=== PATIENT | female | born 1990 | race Caucasian/White ===

== ENCOUNTER 2016-11-30 05:33 | Inpatient (IN) ==
[2016-11-30] MEDS ORDERED: Metoclopramide 10 MG/2 ML VIAL IVP ONE (05:52)
[2016-11-30] MEDS ORDERED: Famotidine 20 MG/2 ML VIAL IVP ONE (05:52)
[2016-11-30] MEDS ORDERED: Ringers Solution, Lactated 1,000 ML IVC ONE (05:52)
[2016-11-30 06:05] LABS: Basophils % 0.5 %; Eosinophils # 0.3 K/mcL (0.0-0.6); Eosinophils % 3.4 %; Hemoglobin 10.7 g/dL (11.5-15.4); Immature Granulocytes % 0.5 % (0-4); Lymphocytes # 1.7 K/mcL (0.6-4.6); Lymphocytes % 19.3 %; Mean Corpuscular HGB Conc 31.5 g/dL (31.6-35.5); Mean Corpuscular Hemoglobin 23.4 pg (28.0-33.3); Mean Corpuscular Volume 74.2 fL (83.0-100.0); Mean Platelet Volume 10.1 fL (9.4-12.4); Monocytes # 0.6 K/mcL (0.0-1.3); Monocytes % 6.4 %; Platelet Count 370 K/mcL (140-400); Red Blood Count 4.58 M/mcL (3.82-4.97); Red Cell Distribution Width 15.3 % (11.5-14.5); Segmented Neutrophils % 69.9 %
[2016-11-30] MEDS: Ringers Solution, Lactated 1,000 ML IVC SCH ×2 (06:19→07:29)
--- NOTE | 2016-11-30 06:22 | Anesthesia Evaluation PreOp ---
Date of Encounter: 11/30/16 Time of Encounter: 06:20 - Past History Planned Operation: REPEAT Cardiac History: Denies any Significant Hx Pulmonary History: Denies Any Significant HX ESL INSTRUCTIONAL ASSISTANT History: Denies Any Significant HX Other Medical History: Denies Any Significant HX, Other (MO=BMI 44) Anesthesia History: No Prior Anesthetic Complications, Past Anesthesia (no family Hx, previous under spinal no comp,) : Yes (term) Alcohol Use: none Drug use: marijuana Medications and Allergies Pnv95/Ferrous Fumarate/FA [ Caplet] 1 each PO DAILY 08/03/16 [History] Zantac 50 mg PO DAILY 11/30/16 [History] Allergies No Known Allergies Allergy (Verified 08/03/16 16:29) Anesthesia Results - Labs 11/30/16 05:50 Anesthesia Exam - HEENT Pupil (Motor): Pupils equal Mallampati: II Teeth: Normal Oral Opening: Greater than 3 - ESL INSTRUCTIONAL ASSISTANT LOC: Oriented ESL INSTRUCTIONAL ASSISTANT Motor: Normal RUE, Normal LUE, Normal RLE, Normal LLE, Normal Face ESL INSTRUCTIONAL ASSISTANT Sensory: Normal: RUE, LUE, RLE, LLE, Face - Cardiac Rhythm: Regular Murmur: None - Pulmonary Breath Sounds: bilateral Clear Respiratory Effort: Symmetrical Anesthesia Assess/Plan ASA Score: 3 (MO. BMI=44) Modified Juan J Scale for Level of Consciousness: Cooperative, oriented, and tranquil Anesthetic Plan: General, Regional Monitoring Plan: Standard Monitors
[2016-11-30] MEDS ORDERED: CeFAZolin Pre 3,000 MG/100 ML 3,000 MG/100 ML BAG IVPB ONE (07:27)
[2016-11-30] MEDS ORDERED: MetroNIDAZOLE 500 MG/100 ML 500 MG/100 ML BAG IVPB ONE (07:27)
[2016-11-30] MEDS ORDERED: *HR* Oxytocin 10 UNIT/ML VIAL IM ONE (07:34)
[2016-11-30] MEDS ORDERED: Water for inj. (sterile) 10 ML IV ONE (07:34)
[2016-11-30] MEDS ORDERED: EPHEDrine 50 MG/ML VIAL ONE ×2 (07:35→08:28)
[2016-11-30] MEDS ORDERED: *HR* Morphine Sulfate/PF 5 MG/10 ML AMPUL ONE (07:35)
[2016-11-30] MEDS ORDERED: *HR* FentaNYL (PF) 100 MCG/2 ML VIAL ONE (07:35)
--- NOTE | 2016-11-30 07:44 | OB/GYN History & Physical ---
Date of Encounter: 11/30/16 Time of Encounter: 07:41 Assessment and Plan (1) Term Current visit: Yes Status: Acute Patient has received care (2) Previous section complicating Current visit: Yes Status: Acute Patient plans for repeat section, she has declined a tubal ligation (3) Morbid obesity with BMI of 40.0-44.9, adult Current visit: Yes Status: Chronic Patient has received glucose screening appropriate for BMI during along with monitoring (4) Maternal morbid obesity in third trimester, antepartum Current visit: Yes Status: Acute The patient has received glucose screening (5) Anemia affecting Current visit: Yes Status: Acute Patient has been receiving iron supplementation History of Present Illness Chief complaint: Term , repeat HPI: Ms. Gonzalez is a 26 year old female at 39 weeks who presents for a repeat C- section. Her EDC is 12/07/16 confirmed by ultrasound. She has declined a tubal ligation with her previous visits and informed consent. She reports the fetus is active. She denies any cramping, vaginal bleeding or loss of fluid. Her blood type is O+, GBS negative rubella nonimmune, hepatitis B surface antigen nonreactive. Syphilis screen nonreactive and varicella is immune. HIV is nonreactive. Her is complicated by marijuana use, most recently in October, , she is measuring large for gestational age. She has had over 30 pound weight gain. Her last child was 9 lbs. 7 oz. Past Med Surg Social Fam HX - Past Medical History Source: patient, old records reviewed Medical history: no medical history, other Psychiatric history: no psych history - Past Surgical History Surgical History: - Social History Smoking Status: Never smoker Smokeless Tobacco Status: No Alcohol use: none Drug use: marijuana - Family History Mother Age: 46 Living Status: Still Living Hx Family Cardiac Disorders: Yes (HEART ATTACK) Hx Family Respiratory Disorders: No Hx Family Cancer: No Hx Family GI Disorders: No Hx Family Genitourinary Disorders: No Hx Family Endocrine Disorder: No Hx Family Musculoskeletal Disorders: No Hx Family Neuromuscular Disorders: No Hx Family Neurologic Disorders: No Hx Family HEENT Disorders: No Hx Family Autoimmune Disorders: No Hx Family Reproductive Disorders: No Hx Family Psychosocial Disorders: No Hx Family Medical Disorders: No Obstetrical History - Pregnancies : 2 Term: 1 Livin Medications and Allergies Pnv95/Ferrous Fumarate/FA [ Caplet] 1 each PO DAILY 08/03/16 [History] Zantac 50 mg PO DAILY 11/30/16 [History] Allergies No Known Allergies Allergy (Verified 08/03/16 16:29) Review of System OB All systems PM: reviewed and no additional remarkable complaints except as stated - Constitutional Constitutional ROS IM: fatigue, weight gain - Cardiovascular Cardiovascular: edema, leg edema Exam - Vital Signs Vital signs: Initial Vital Signs Temp Pulse Resp BP 97.2 F L 114 16 119/82 11/30/16 05:44 11/30/16 05:44 11/30/16 05:44 11/30/16 05:44 - Constitutional Constitutional: well developed, well nourished, no acute distress, morbidly obese - HEENT HEENT: Mucus Membranes Moist - Neck Neck exam: normal inspection, supple - Lungs Respiratory exam: CTAB - Cardiovascular Cardiovascular exam: RRR - Abdomen Abdomen: Present: bowel sounds normal, gravid, non tender - Extremities Extremities exam: normal inspection, pedal edema, warm Deep Tendon Reflex Grade: 2+ Normal - Vulva Vulva: bilateral: normal - Vagina Vagina: Present: normal moisture Results Result Diagrams: 11/30/16 05:50 Abnormal lab results Hgb 10.7 g/dL (11.5-15.4) L 11/30/16 05:50 Hct 34.0 % (35.3-44.9) L 11/30/16 05:50 MCV 74.2 fL (83.0-100.0) L 11/30/16 05:50 MCH 23.4 pg (28.0-33.3) L 11/30/16 05:50 MCHC 31.5 g/dL (31.6-35.5) L 11/30/16 05:50 RDW 15.3 % (11.5-14.5) H 11/30/16 05:50 All other labs normal. - VTE Documentation of Mechanical Device: Intermittent pneumatic compression device
[2016-11-30] MEDS ORDERED: Ondansetron 4 MG/2 ML VIAL ONE (09:46)
--- NOTE | 2016-11-30 09:52 | OB/GYN Procedure Note ---
Section - Date of procedure: 11/30/16 Preop diagnosis: desires repeat , breech, other (Morbid obesity) Post-op diagnosis: same (Dense uterine adhesions) Procedure: section, repeat low transverse, other (adhesiolysis) Surgeon: Lela Marion Estimated blood loss (cc): 900 Anesthesiologist: Rajan Greenfield Computer [employer] Information Director: Leti Whitmore Anesthesia Type: Spinal section complications: none Disposition: L&D Recovery Room Specimens: Placenta, Cord segment, Cord blood - (s) Infant A Delivery Date: 11/30/16 Delivery Time: 08:49 Presentation: footling breech Route of delivery: other (Repeat ) Gender: Male Viability: Viable Pounds: 7 Ounces: 5 at 1 minute: 7 at 5 minutes: 9 Shoulder Dystocia: not encountered Specimens collected: cord blood Placenta: spontaneous, uterine exploration Cord: 3 umbilical vessels - Narrative Narrative: The patient was taken to the operating room and given spinal anesthesia adequate for abdominal and pelvic surgery. She was prepped and draped in the usual sterile fashion. Timeout was completed. A Pfannenstiel skin incision was made through the previous scar and sharply dissected down to the fascia. The fascia was incised in the midline and extended bilaterally. 2 straight Figueroa clamps were placed on the inferior fascial edge and the fascia was bluntly and sharply dissected away from the rectus muscles. This was repeated superiorly. The rectus muscles were bluntly dissected. Peritoneum was sharply entered and then extended superiorly and inferiorly confirming there were no anterior adhesions. Bladder blade was placed to protect the bladder. There were dense adhesions of the uterus to the anterior wall which were lysed using Bovie and Metzenbaum scissors. Vesicouterine peritoneum was incised and reflected inferiorly and the bladder blade was replaced to protect the bladder. A low transverse incision was then made through the lower uterine segment down to the amnion. This was extended bilaterally in a U fashion with bandage scissors. The amnion was bluntly entered. A large amount of clear fluid was seen. This was followed by the double footling breech delivery of a viable male infant weighing 7#5 oz with Apgars of 7 at 1 minute and 9 at 5 minutes. was placed on the maternal abdomen and bulb suctioned as there is a large amount of fluid in the 's mouth and nares. The cord was clamped and cut after a minute delay. was handed to the nursery care team. Cord blood and a cord segment were obtained. The placenta was delivered spontaneous and intact. The uterine cavity was digitally palpated and wiped clean with a moist lap sponge. There were no placental remnants identified. A ring forcep was used to make sure the cervix was dilated and then this was discarded off the field. Clamps were placed on the uterine angles and the uterine incision was closed using 0 Vicryl suture in a running, locking fashion. A second imbricating layer completed the uterine closure with 0 Vicryl suture. Hemostasis was achieved using 0 Vicryl in a [id number] fashion at the midline. The uterus was then examined and noted to be hemostatic. The pelvis was then irrigated with a copious amount of sterile water. Again, good hemostasis was identified. Tubes and ovaries were inspected and noted to be grossly normal. The peritoneal edges and rectus muscles were then examined and hemostasis achieved. Interceed was placed over the uterine incision. The fascia was then closed using 0 PDS loop in a running nonlocking fashion. Subcutaneous tissue was irrigated with sterile water, good hemostasis was achieved. Subcutaneous space was then closed using 3-0 Vicryl in a running locking fashion. The skin was then closed using and 4-0 Vicryl in a running subcuticular fashion. The incision was then reinforced with benzoin and Steri-Strips. Good hemostasis was noted. Estimated blood loss was 900cc. The Sánchez was noted to be draining clear yellow urine at the end of the procedure. All sponge and instrument counts are correct at the end of the procedure. The patient was taken to the recovery room in stable condition.
[2016-11-30] MEDS ORDERED: *HR* HYDROmorphone (PF) 1 MG/ML SYRINGE IVP PRN ×2 (10:03→12:41)
[2016-11-30] MEDS ORDERED: *HR* Morphine 2 MG/ML SYRINGE IVP PRN ×2 (10:03→12:41)
[2016-11-30] MEDS ORDERED: *HR* Promethazine 25 MG/ML VIAL IVP PRN (10:03)
[2016-11-30] MEDS ORDERED: Oxytocin 20 units/ LR 1000 mL 20 UNIT/1,000 ML BAG IVC ONE (10:28)
--- NOTE | 2016-11-30 12:00 | Anesthesia Evaluation Post Op ---
Date of Encounter: 11/30/16 Time of Encounter: 11:55 - Vital Signs Vital Signs: vss - Lungs Lungs: Clear Ascult./Percussion - Airway Airway: Non-obstructed - Cardiovascular Regular Rate, Baseline Rhythm - Mental Status Mental Status: Alert & Oriented, Answers Appropriately - Pain Pain Scale: 5 (down from a 7 or 8 ) Pain Scale used: Numeric (1 - 10) - Nausea Vomiting Nausea Vomiting: Not Present - Hydration Hydration: Ice chips, Sánchez catheter - Discharge PostOp Status: Transfer Patient to floor
[2016-11-30] MEDS ORDERED: Acetaminophen IV 1,000 MG/100 ML INFUS..BTL IVPB ONE (12:41)
[2016-11-30] MEDS ORDERED: Measles/Mumps/Rubella Vacc 0.5 ML VIAL SQ ONE (12:41)
[2016-11-30] MEDS ORDERED: Oxytocin 20 units/ LR 1000 mL 20 UNIT/1,000 ML BAG IV SCH (12:41)
[2016-11-30] MEDS ORDERED: Sennosides 8.6 MG TABLET PO PRN (12:41)
[2016-11-30] MEDS ORDERED: Rho Immune Globulin 1,500 UNIT SYRINGE IM ONE (12:41)
[2016-11-30] MEDS ORDERED: Simethicone 80 MG TAB.CHEW PO PRN (12:41)
[2016-11-30] MEDS ORDERED: Ondansetron 4 MG/2 ML VIAL IVP PRN (12:41)
[2016-11-30] MEDS ORDERED: Metoclopramide 10 MG/2 ML VIAL IVP PRN (12:41)
[2016-11-30] MEDS: Ibuprofen 600 MG TABLET PO PRN (18:36)
[2016-11-30] MEDS: *HR* OxyCODONE/APAP 5/325 TABLET PO PRN (21:16)
[2016-11-30] MEDS ORDERED: Ringers Solution, Lactated 1,000 ML ONE (21:38)
[2016-12-01] MEDS: Ibuprofen 600 MG TABLET PO PRN ×3 (03:09→23:31)
[2016-12-01] MEDS ORDERED: Ringers Solution, Lactated 1,000 ML ONE (05:55)
[2016-12-01] MEDS: *HR* OxyCODONE/APAP 5/325 TABLET PO PRN ×3 (07:00→20:17)
[2016-12-01 07:05] LABS: Basophils % 0.1 %; Eosinophils % 0.1 %; Hematocrit 23.2 % (35.3-44.9); Immature Granulocytes % 0.7 % (0-4); Lymphocytes # 1.1 K/mcL (0.6-4.6); Lymphocytes % 8.2 %; Mean Corpuscular HGB Conc 30.6 g/dL (31.6-35.5); Mean Corpuscular Hemoglobin 22.9 pg (28.0-33.3); Mean Corpuscular Volume 74.8 fL (83.0-100.0); Mean Platelet Volume 10.2 fL (9.4-12.4); Monocytes # 0.7 K/mcL (0.0-1.3); Monocytes % 4.8 %; Neutrophils # 11.9 K/mcL (1.6-8.9); Platelet Count 328 K/mcL (140-400); Red Cell Distribution Width 15.6 % (11.5-14.5); Segmented Neutrophils % 86.1 %
[2016-12-01 07:46] LABS: Hemoglobin 7.1 g/dL (11.5-15.4)
--- NOTE | 2016-12-01 09:55 | OB/GYN Progress Note ---
Date of Encounter: 12/01/16 Time of Encounter: 09:53 - Assessment and Plan (1) Status post delivery Current Visit: Yes Status: Acute Continue routine postop/ care possible discharge home tomorrow (2) Anemia, Current Visit: Yes Status: Acute Patient is asymptomatic will repeat cbc Subjective - Subjective Principal diagnosis: day 1 Interval history: Patient postop day 1 repeat c/s. Patient is breast feeding . denies any needs at this time. at bedside. Patient reports: appetite normal, voiding normally, pain well controlled, ambulating normally : doing well, nursing well Objective - Vital Signs Latest vital signs: Vital Signs Temp Pulse Resp BP Pulse Ox 12/01/16 08:05 98.7 F 109 16 110/75 94 L 12/01/16 06:15 98.2 F 118 16 112/75 94 L 12/01/16 03:20 98.3 F 115 18 116/74 96 11/30/16 20:10 98.4 F 120 20 107/65 97 11/30/16 18:29 98.1 F 115 17 109/76 96 11/30/16 16:00 98.5 F 117 20 113/81 95 11/30/16 14:45 97.9 F 117 17 111/79 97 11/30/16 13:45 97.5 F L 117 20 109/78 96 11/30/16 13:20 98.5 F 133 20 112/75 96 11/30/16 12:45 97.8 F 144 20 116/75 95 Intake and Output 11/30/16 12/01/16 12/01/16 23:59 07:59 15:59 Intake Total 890 / 890 150 / 150 Output Total 350 / 350 1200 / 1200 450 / 450 Balance 540 / 540 -1200 / -1200 -300 / -300 Intake: Oral 890 / 890 150 / 150 Output: Urine 850 / 850 450 / 450 Catheter 350 / 350 350 / 350 Other: Meal Dinner Percent of Meal Consumed 25% Stool Characteristics Normal for Patient Weight 121.2 kg Patient Weight 12/01/16 23:59 Weight 121.2 kg - Exam Lungs: bilateral: normal Chest: Normal S1, Normal S2 Extremities: Present: normal Abdomen: Present: normal appearance, soft, gravid Incision: Present: normal, dry, intact, dressed Uterus: Present: normal, firm Fundal Height: 2 (U/2) - Labs Labs: Laboratory Results - last 24 hr 12/01/16 06:07 WBC 13.8 H D RBC 3.10 L Hgb 7.1 L D Hct 23.2 L MCV 74.8 L MCH 22.9 L MCHC 30.6 L RDW 15.6 H Plt Count 328 MPV 10.2 Immature Gran % 0.7 Seg Neutrophils % 86.1 Lymphocytes % 8.2 Monocytes % 4.8 Eosinophils % 0.1 Basophils % 0.1 Neutrophils # 11.9 H Lymphocytes # 1.1 Monocytes # 0.7 Eosinophils # 0.0 Basophils # 0.0
[2016-12-02 04:30] LABS: Basophils % 0.3 %; Eosinophils # 0.2 K/mcL (0.0-0.6); Eosinophils % 1.7 %; Hematocrit 21.1 % (35.3-44.9); Hemoglobin 6.4 g/dL (11.5-15.4); Immature Granulocytes % 0.7 % (0-4); Lymphocytes # 1.9 K/mcL (0.6-4.6); Lymphocytes % 13.3 %; Mean Corpuscular HGB Conc 30.3 g/dL (31.6-35.5); Mean Corpuscular Hemoglobin 22.9 pg (28.0-33.3); Mean Corpuscular Volume 75.4 fL (83.0-100.0); Mean Platelet Volume 9.6 fL (9.4-12.4); Monocytes # 0.7 K/mcL (0.0-1.3); Monocytes % 5.3 %; Platelet Count 337 K/mcL (140-400); Red Cell Distribution Width 15.4 % (11.5-14.5); Segmented Neutrophils % 78.7 %
[2016-12-02] MEDS: Ibuprofen 600 MG TABLET PO PRN ×2 (06:42→15:34)
[2016-12-02] MEDS: Prenatal Vit/FA 1 EACH TABLET PO SCH (08:07)
--- NOTE | 2016-12-02 08:11 | OB/GYN Progress Note ---
Date of Encounter: 12/02/16 Time of Encounter: 08:09 - Assessment and Plan (1) Status post delivery Current Visit: Yes Status: Acute POD #2. Will continue to monitor. Patient is able to shower and ambulate as tolerated after transfusion. (2) Anemia, Current Visit: Yes Status: Acute Hgb dropped from 7.1 yesterday to 6.4 today. Patient is reporting symptoms of lightheadedness and chills. Patient is tachycardiac during exam. Discussed risks and benefits of blood transfusion. Will type and cross 2 units and transfuse blood. Will obtained CBC tomorrow. Subjective - Subjective Principal diagnosis: s/p , POD#2 Interval history: Hgb dropped to 6.4, down from 7.1 yesterday and 10.7 pre-operatively. Patient reports some lightheadedness which occurred when she passed a clot yesterday. Patient also is admitting to chills. Otherwise patient has no complaints. Patient reports: appetite normal, voiding normally, pain well controlled, ambulating normally, other (lightheaded, chills) [place]: doing well, nursing well Objective - Vital Signs Latest vital signs: Vital Signs Temp Pulse Resp BP Pulse Ox 12/01/16 23:10 98.0 F 115 16 123/87 94 L 12/01/16 20:40 98.5 F 113 16 118/79 94 L Intake and Output 12/01/16 12/02/16 12/02/16 23:59 07:59 15:59 Intake Total 240 / 240 100 / 100 Output Total 725 / 725 0 / 0 Balance -485 / -485 100 / 100 Intake: Oral 240 / 240 100 / 100 Output: Urine 725 / 725 0 / 0 - Exam Lungs: bilateral: normal Chest: Normal S1, Normal S2 Extremities: Present: normal. Absent: tenderness Abdomen: Present: normal appearance, soft. Absent: tenderness Incision: Present: normal, dry, intact Uterus: Present: firm Comments: Patient is tachycardiac on exam at 120. - Labs Labs: Laboratory Results - last 24 hr 12/02/16 04:00 WBC 14.0 H RBC 2.80 L Hgb 6.4 L Hct 21.1 L MCV 75.4 L MCH 22.9 L MCHC 30.3 L RDW 15.4 H Plt Count 337 MPV 9.6 Immature Gran % 0.7 Seg Neutrophils % 78.7 Lymphocytes % 13.3 Monocytes % 5.3 Eosinophils % 1.7 Basophils % 0.3 Neutrophils # 11.0 H Lymphocytes # 1.9 Monocytes # 0.7 Eosinophils # 0.2 Basophils # 0.0
[2016-12-02] MEDS ORDERED: 0.9 % Sodium Chloride Mini Bag 100 ML ONE (12:03)
[2016-12-02] MEDS ORDERED: 0.9 % Sodium Chloride 500 ML ONE (12:06)
[2016-12-02] MEDS: *HR* OxyCODONE/APAP 5/325 TABLET PO PRN (21:38)
[2016-12-03] MEDS: *HR* OxyCODONE/APAP 5/325 TABLET PO PRN (03:06)
[2016-12-03] MEDS: Prenatal Vit/FA 1 EACH TABLET PO SCH (08:17)
[2016-12-03 08:22] VITALS: BP 124/86
[2016-12-03 09:12] LABS: Basophils # 0.1 K/mcL (0.0-0.2); Basophils % 0.6 %; Eosinophils # 0.7 K/mcL (0.0-0.6); Eosinophils % 5.8 %; Hematocrit 24.1 % (35.3-44.9); Hemoglobin 7.9 g/dL (11.5-15.4); Immature Granulocytes % 1.3 % (0-4); Lymphocytes # 1.7 K/mcL (0.6-4.6); Lymphocytes % 14.2 %; Mean Corpuscular HGB Conc 32.8 g/dL (31.6-35.5); Mean Corpuscular Hemoglobin 25.3 pg (28.0-33.3); Mean Corpuscular Volume 77.2 fL (83.0-100.0); Mean Platelet Volume 10.1 fL (9.4-12.4); Monocytes # 0.6 K/mcL (0.0-1.3); Monocytes % 5.1 %; Neutrophils # 8.6 K/mcL (1.6-8.9); Nucleated Red Blood Cells 0.3 /100 WBC (0); Platelet Count 386 K/mcL (140-400); Red Blood Count 3.12 M/mcL (3.82-4.97); Red Cell Distribution Width 16.7 % (11.5-14.5)
--- NOTE | 2016-12-03 10:08 | Discharge Summary ---
Date of Encounter: 12/03/16 Time of Encounter: 10:04 - Discharge Diagnosis (1) Status post delivery Priority: Primary Status: Acute Comments: Continue routine postop/ care discharge home today follow up with Dr. Marion in 2 weeks (2) Anemia, Priority: Secondary Status: Acute Comments: Patient received 2 units PRBCs patient is asymtomatic Will continue ferrous sulfate BID - Discharge Medications Prescriptions: OxyCODONE/APAP 5/325 [Percocet 5/325 MG] 1 each PO Q4HR PRN #30 tablet PRN Reason: Moderate pain 4-6 Ibuprofen [Motrin] 600 mg PO Q6HR PRN #60 tablet PRN Reason: Cramping Ferrous Sulfate 325 mg PO BID #60 tablet Home Medications: Pnv95/Ferrous Fumarate/FA [ Caplet] 1 each PO DAILY 08/03/16 [History] Breast Pump [BREAST PUMP] 1 each .ROUTE AD #1 each 12/03/16 [Rx] Ferrous Sulfate 325 mg PO BID #60 tablet 12/03/16 [Rx] Ibuprofen [Motrin] 600 mg PO Q6HR PRN #60 tablet 12/03/16 [Rx] OxyCODONE/APAP 5/325 [Percocet 5/325 MG] 1 each PO Q4HR PRN #30 tablet 12/03/16 [Rx] Vit/FA 1 each PO DAILY tablet 12/03/16 [Rx] Allergies/Adverse Reactions: Allergies No Known Allergies Allergy (Verified 08/03/16 16:29) Data Procedures and tests throughout hospitalization: Laboratory Tests 11/30/16 12/01/16 12/02/16 05:50 06:07 04:00 WBC 8.6 13.8 H D 14.0 H RBC 4.58 3.10 L 2.80 L Hgb 10.7 L 7.1 L D 6.4 L Hct 34.0 L 23.2 L 21.1 L MCV 74.2 L 74.8 L 75.4 L MCH 23.4 L 22.9 L 22.9 L MCHC 31.5 L 30.6 L 30.3 L RDW 15.3 H 15.6 H 15.4 H Plt Count 370 328 337 MPV 10.1 10.2 9.6 Immature Gran % 0.5 0.7 0.7 Seg Neutrophils % 69.9 86.1 78.7 Lymphocytes % 19.3 8.2 13.3 Monocytes % 6.4 4.8 5.3 Eosinophils % 3.4 0.1 1.7 Basophils % 0.5 0.1 0.3 Neutrophils # 6.0 11.9 H 11.0 H Lymphocytes # 1.7 1.1 1.9 Monocytes # 0.6 0.7 0.7 Eosinophils # 0.3 0.0 0.2 Basophils # 0.0 0.0 0.0 Nucleated RBCs/100 WBC Blood Type Antibody Screen Crossmatch 12/02/16 12/03/16 10:21 07:00 WBC 11.8 H RBC 3.12 L Hgb 7.9 L D Hct 24.1 L MCV 77.2 L MCH 25.3 L MCHC 32.8 RDW 16.7 H Plt Count 386 MPV 10.1 Immature Gran % 1.3 Seg Neutrophils % 73.0 Lymphocytes % 14.2 Monocytes % 5.1 Eosinophils % 5.8 Basophils % 0.6 Neutrophils # 8.6 Lymphocytes # 1.7 Monocytes # 0.6 Eosinophils # 0.7 H Basophils # 0.1 Nucleated RBCs/100 WBC 0.3 H Blood Type O POSITIVE Antibody Screen NEGATIVE Crossmatch See Detail Labs on day of discharge: Labs from last 24 hours 12/03/16 12/02/16 07:00 10:21 WBC 11.8 H RBC 3.12 L Hgb 7.9 L D Hct 24.1 L MCV 77.2 L MCH 25.3 L MCHC 32.8 RDW 16.7 H Plt Count 386 MPV 10.1 Immature Gran % 1.3 Seg Neutrophils % 73.0 Lymphocytes % 14.2 Monocytes % 5.1 Eosinophils % 5.8 Basophils % 0.6 Neutrophils # 8.6 Lymphocytes # 1.7 Monocytes # 0.6 Eosinophils # 0.7 H Basophils # 0.1 Nucleated RBCs/100 WBC 0.3 H Blood Type O POSITIVE Antibody Screen NEGATIVE Crossmatch See Detail Date of admission: 11/30/16 05:33 Primary care physician: PCP NO Consults: 11/30/16 12:41 Consult to [employer] Machine Operator ([employer]) [CONS] Routine Reason For Exam: Reason for SW Consult: THC use during Discharging clinician: Malissa Hunter Anticipated date of discharge: 12/03/16 - Patient Status Disposition: Home, Self-Care Condition: Good - Discharge Instructions Follow Up With: NO,PCP [Primary Care Provider] - Lela Marion MD [Partnered Physician] - - Diet and Activity Activity: increase activity as tolerated Diet: regular diet Hospital Course Procedures: OARRs report reviewed prior to discharge per GEOVANNA Palencia Reason for admission: section Delivery: section Episiotomy: none Laceration: none complications: none Discharge diagnosis: IUP at term delivered [place] baby: male (breast and bottle feeding) Time Attestation: Total time spent providing and/or coordinating discharge services: Time Spent: Less than 30 minutes - VTE Documentation of Mechanical Device: Intermittent pneumatic compression device Exam - Constitutional Vitals: Temp Pulse Resp BP Pulse Ox 97.4 F L 87 16 124/86 94 L 12/03/16 08:21 12/03/16 08:21 12/03/16 08:21 12/03/16 08:21 12/02/16 23:58 General appearance IM: A&O X 3, pleasant, obese, answers questions appropriately - Respiratory Respiratory exam: Present: CTAB - Cardiovascular Cardiovascular exam IM: Present: RRR, +S1, +S2 - GI/Abdominal GI/Abdominal exam IM: normal bowel sounds - Uterine Tone: Firm Uterus Position: 1 Finger Below Umbilicus, Midline - Extremities Exam Extremities exam IM: Present: full ROM, normal capillary refill, normal inspection, pedal edema (1+) - Neurological Exam Neurological exam: alert, oriented X3, reflexes normal
== END 2016-12-03 12:20 | disposition home or self-care (01) | DRG 540 ==
LOC: 1NENULAB 05:33 → 1NENUOBS 12:18
PROVIDERS: ADMIT Obstetrics & Gynecology; ATTEND Obstetrics & Gynecology